=== PATIENT | male | born 1970 | race Caucasian/White ===

== ENCOUNTER → 2024-09-25 09:26 | Outpatient (BNVA) | payer MEDICARE, MEDICAID, SELFPAY | PROVIDERS: Family Provider Family Medicine; PCP Surgery Plastic and Reconstructive Surgery; Visit Provider Orthopaedic Surgery | DX: M79.641 Pain in right hand (principal) | CPT/HCPCS: 73130; 99204 ==

== ENCOUNTER 2024-10-01 14:21 | Outpatient (CLI) | payer MEDICARE, MEDICAID, SELFPAY ==
--- NOTE | 2024-10-01 14:28 | CT_ITS ---
WS: [id number] LDCT LUNG CANCER SCREENING TECHNIQUE: Noncontrast CT of the chest with coronal and sagittal reformatted images. CLINICAL INFORMATION: HX OF TOBACCO USE COMPARISON: None. DLP: 64.59 mGy.cm DIvol: Mean CTDIvol: 1.30 (mGy) All CT scans at [facility] use at least one of these dose optimization techniques: automated exposure control; mA and/or kV adjustment per patient size (includes targeted exams where dose is matched to clinical indication); or iterative reconstruction. FINDINGS: Moderate chronic emphysematous changes. Biapical fibrosis. Spiculated suspicious nodule RIGHT upper lobe extending to the pleura anteriorly. Spiculated nodule measures 3.0 x 1.3 cm. Neoplasm not excluded and recommend further evaluation with PET/CT. Normal caliber thoracic aorta. Mild aortic arch calcification. Enlarged RIGHT hilar lymph nodes. Enlarged pretracheal conglomeration of lymph nodes measuring 3.5 cm. RIGHT hilar lymphadenopathy. RIGHT perifissural nodules measuring up to 1.0 cm. Tiny esophageal hiatal hernia. Adrenal glands appear normal. Mild spondylitic changes thoracic spine. CT/CT lung screening [id number] IMPRESSION: Suspicious spiculated nodule RIGHT upper lobe anteriorly extending to the pleur a. Recommend further evaluation with PET/CT. Neoplasm not excluded. Conglomerate enlarged pretracheal lymph nodes measuring up to 3.3 cm. Additiona l RIGHT hilar lymphadenopathy. Neoplasm not excluded. Recommend pulmonology con sultation and PET/CT. LUNG-RADS: 4X-Suspicious FOLLOW UP: PET/CT recommended
== END 2024-10-01 14:22 | disposition home or self-care (01) ==
LOC: RAD 14:24
PROVIDERS: Family Provider Family Medicine; PCP Surgery Plastic and Reconstructive Surgery; Visit Provider Nurse Practitioner Family
DX: Z12.2 Encounter for screening for malignant neoplasm of respiratory organs (principal); Z87.891 Personal history of nicotine dependence; J43.9 Emphysema, unspecified; J84.10 Pulmonary fibrosis, unspecified; I70.0 Atherosclerosis of aorta; R59.0 Localized enlarged lymph nodes; M47.894 Other spondylosis, thoracic region; R91.8 Other nonspecific abnormal finding of lung field
CPT/HCPCS: 71271

== ENCOUNTER 2024-11-04 07:55 | Oncology outpatient (recurring) (ONCR) | payer MEDICARE, MEDICAID, SELFPAY | END 2024-11-18 23:59 | disposition home or self-care (01) | LOC: ONCMED 07:56 | PROVIDERS: PCP Nurse Practitioner Family; Visit Provider Internal Medicine Medical Oncology | DX: R91.8 Other nonspecific abnormal finding of lung field (principal); Z72.0 Tobacco use | CPT/HCPCS: 99205 ==